=== PATIENT | male | born 1960 | race Caucasian/White ===

== ENCOUNTER 2022-06-18 00:23 | Day surgery (SDC) | payer MEDICARE, OTHER, SELFPAY ==
[2022-06-17 11:55] VITALS: BMI 29.9
[2022-06-18] VITALS (7 sets, daily range): BP systolic 107–139; BP diastolic 62–99; PULSE 70–105; RESP 9–20; TEMP 36.4; O2SAT 93–100; BMI 29.2
--- NOTE | 2022-06-18 07:00 | ECG_ITS ---
Measurements Intervals [place] Rate: 106 P: [place]: 0 QRS: 75 QRSD: 85 T: 41 QT: 334 QTc: 444 Interpretive Statements ATRIAL FLUTTER/TACHYCARDIA WITH RAPID VENTRICULAR RESPONSE ABNORMAL ECG NO PREVIOUS ECG AVAILABLE FOR COMPARISON Electronically Signed On 06-18-2022 11:56:33 SOFTWARE ENGINEER DEVELOPER by Dilan Posadas D.O.
[2022-06-18 08:20] LABS: Anion Gap 11 mmol/L (8-16); Blood Urea Nitrogen 10 mg/dL (9-20); Calcium 8.7 mg/dL (8.4-10.2); Carbon Dioxide 27 mmol/L (22-30); Chloride 101 mmol/L (98-107); Estimated CRCL calculation 96 ml/min; Estimated Glomerular Filt Rate > 60; Glucose 105 mg/dL (65-110); Magnesium 1.8 mg/dL (1.6-2.3); Potassium 4.4 mmol/L (3.4-5.0); Sodium 139 mmol/L (137-145)
--- NOTE | 2022-06-18 08:35 | WPDMODSED ---
Moderate Sedation Note-Pt Data Patient Data Diagnosis: Atrial fibrillation/flutter Present Complaint: Atrial fibrillation/flutter Procedure to be performed/Plan: Elective electrical cardioversion Moderate sedation Allergies Allergy/AdvReac Type Severity Reaction Status Date / Time hydrocodone Allergy Mild Other Verified 06/18/22 07:38 Home Medications Medication Instructions Recorded Confirmed Type apixaban 5 mg tablet (Eliquis) 5 mg PO BID 06/18/22 06/18/22 History cholecalciferol (vitamin D3) 25 25 mcg PO DAILY 06/18/22 06/18/22 History mcg (1,000 unit) tablet (Vitamin D3) cyanocobalamin (vitamin B-12) 1,000 mcg PO DAILY 06/18/22 06/18/22 History 1,000 mcg tablet flecainide 50 mg tablet 50 mg PO DAILY 06/18/22 06/18/22 History folic acid 1 mg tablet 1 mg PO DAILY 06/18/22 06/18/22 History metoprolol succinate 50 mg 50 mg PO DAILY 06/18/22 06/18/22 History tablet,extended release 24 hr multivitamin with minerals-folic 1 tablet PO DAILY 06/18/22 06/18/22 History acid 0.4 mg tablet pravastatin 20 mg tablet 20 mg PO DAILY 06/18/22 06/18/22 History pregabalin 75 mg capsule 75 mg PO BID 06/18/22 06/18/22 History thiamine HCl (vitamin B1) 100 mg 100 mg PO DAILY 06/18/22 06/18/22 History tablet (Vitamin B-1) Current Medications: Active Medications Sodium Chloride (Normal Saline Iv) 1,000 mls @ 30 mls/hr IV CONT .Q24H MATT Stop: 06/18/22 10:00 Sedation/Anesthesia: No previous sedation/anesthesia problems (including family history). [facility] Social History Social History Smoking status: Former smoker Tobacco type: cigarettes Smoking end date: 07/17/21 Alcohol intake: current Alcohol use details: 6-8 beers per day, 4-5 days per week Living arrangements: with family Spiritual care concerns: No Mod Sed Physical Exam Physical Exam Pre Procedural Exam: Normal: Appearance, Eyes, Ears, Nose, Neck, Throat, Airway, Lungs, Heart Size, Heart Rate, Neuro Exam, Extremities and Skin and Variation: Heart Rhythm (Irregular irregular) Hours since solid foods: 12 Hours since liquid intake: 12 Mallampati Classification: class II Internal Medicine - PN: Obj Da Vital Signs Vital Signs: Vital Signs - 24 hr 06/18/22 07:25 Temperature 36.4 C Pulse Rate 105 H Respiratory Rate 15 Blood Pressure 139/99 H Pulse Oximetry 98 Oxygen Delivery Room Air Meds/Results Medications: Active Medications Generic Name Dose Route Start Last Admin Trade Name Jonnyq PRN Reason Stop Dose Admin Sodium Chloride 1,000 mls @ 30 mls/hr 06/18/22 07:00 Normal Saline Iv IV CONT 06/18/22 10:00 .Q24H MATT Labs CBC & Chem 7: 06/18/22 07:57 Labs: Laboratory Results - last 24 hr 06/18/22 07:57 Sodium 139 Potassium 4.4 Chloride 101 Carbon Dioxide 27 Anion Gap 11 BUN 10 Creatinine 0.80 Estim Creat Clear Calc 96 Estimated GFR > 60 Glucose 105 Calcium 8.7 Magnesium 1.8 ASA Classification/Sedation ASA Classification/Sedation ASA Class: II Emergent: No Risks: Risks, benefits and alternatives explained and patient/family accepted plan for sedation. Patient re-evaluated immediately prior to sedation.
--- NOTE | 2022-06-18 08:46 | P.PCNCVR_ITS ---
Cardioversion Cardioversion Date of procedure: 06/18/22 Procedure: 1. Moderate sedation 2. Elective electrical cardioversion Pre-op diagnosis: Atrial fibrillation/flutter Post-op diagnosis: Same Indications: Atrial fibrillation/flutter Description of procedure: After discussing the risks, benefits and alternatives of procedure patient agree able via verbal and written informed consent. Risks discussed included shocking into more problematic heart rhythm, , skin irritation or burn, adverse reaction to anesthesia, stroke. Patient has not missed any doses of Eliquis for greater than 4 weeks. No JUSTIN therefore is needed. Continuous telemetry monitoring, pulse oxygenation and serial blood pressure assessments were established. Time-out was taken and sedation was initiated Procedure start time 8:38 a.m. Procedure stop time 8:44 a.m. Complications: None Blood loss: None Moderate sedation: A total 4 mg of Versed and 100 mcg of fentanyl given in divided dosages Medications were administered and patient was monitored by Fabiola Stone RN Sedation: As detailed above Findings: Successful christian of sinus rhythm from atrial fibrillation/flutter using 150 joules of biphasic synchronized energy Conclusion: 1. Successful christian of sinus rhythm using 150 joules of synchronized biphasic energy 2. Moderate sedation
--- NOTE | 2022-06-18 09:00 | ECG_ITS ---
Measurements Intervals [place] Rate: 73 P: 43 NV: 238 QRS: 76 QRSD: 87 T: 43 QT: 397 QTc: 440 Interpretive Statements SINUS RHYTHM WITH FIRST DEGREE AV BLOCK POSSIBLE LEFT ATRIAL ENLARGEMENT BASELINE WANDER- V4 BORDERLINE ECG NO PREVIOUS ECG AVAILABLE FOR COMPARISON Electronically Signed On 06-18-2022 8:59:28 QUANTITATIVE DEVELOPER by Dilan Posadas D.O.
== END 2022-06-18 09:40 | disposition home or self-care (01) ==
PROVIDERS: PCP Internal Medicine; Visit Provider Internal Medicine Cardiovascular Disease
PROC: 5A2204Z Restoration of Cardiac Rhythm, Single (ICD-10-PCS; principal; 2022-06-18 08:30)
DX: I48.0 Paroxysmal atrial fibrillation (principal); I48.92 Unspecified atrial flutter; I47.1 Supraventricular tachycardia; R07.89 Other chest pain; I25.10 Atherosclerotic heart disease of native coronary artery without angina pectoris; Z79.01 Long term (current) use of anticoagulants; Z87.891 Personal history of nicotine dependence
CPT/HCPCS: 36415; 80048; 83735; 92960; J2250; J3010; J7030